=== PATIENT | male | born 1950 | race Caucasian/White ===

== ENCOUNTER → 2021-01-20 10:46 | Outpatient (CLI) | payer MEDICARE, BC, SELFPAY ==
--- NOTE | 2021-01-20 | DI.NM.S_ITS ---
PROCEDURE: NM BONE SCAN WHOLE BODY RADIOPHARMACEUTICAL: 19.5 mCi Tc-99m MDP IV. INDICATIONS: Malignant neoplasm of prostate TECHNIQUE: Delayed whole-body scintigrams were obtained approximately 3-4 hours after intravenous injection of radiotracer. Anterior and posterior views were acquired from vertex to feet. Additional left and right oblique views of the pelvis were obtained. COMPARISON: None. FINDINGS: There is abnormal uptake in the upper thoracic spine, suspicious metastasis. Increased uptake is seen in the right sacrum adjacent to the sacroiliac joint, highly suspicious for metastasis. Increased activity is seen in the right posterior scapula and the humeral head. Paranasal activity is seen, likely secondary to paranasal sinus disease. Multiple rib lesions are seen involving the right anterior ribs, aligned in the linear fashion, most likely related to old trauma. A focal uptake is also seen in the left anterior 5th rib, which is indeterminate. No lesions are identified in skull, sternum, clavicles and visualized shafts of the long bones. There are foci of increased periarticular activity involving shoulders, sternoclavicular joints, left hip, knees, and feet, compatible with degenerative/arthritic changes. IMPRESSION: 1. Increased uptake in the upper thoracic spine suspicious for metastasis. Recommend radiographic correlation. 2. Increased uptake in the right sacrum adjacent to the sacroiliac joint suspicious for metastasis. Recommend radiographic correlation. 3. Increased activity in the right scapula and humeral head, indeterminate. Recommend radiographic correlation. 4. Degenerative/arthritic changes in multiple peripheral joints as described. Recommend radiographic correlation if clinically indicated Dictated by: Asher Hitchcock M.D. on 01/20/2021 at 15:26 Approved by: Asher Hitchcock M.D. on 01/20/2021 at 18:25
== END ==
PROVIDERS: PCP Family Medicine; Referring Provider Internal Medicine; Visit Provider Internal Medicine
DX: C61 Malignant neoplasm of prostate (principal); M89.9 Disorder of bone, unspecified
CPT/HCPCS: 78306; A9503